=== PATIENT | male | born 1970 | race Caucasian/White ===

== ENCOUNTER 2018-07-24 07:57 | Day surgery (SDC) | payer BC ==
[~2018-07-24] VITALS: Ht 172.7 cm; Wt 66.7 kg
[2018-07-24] VITALS (7 sets, daily range): BP systolic 111–133; BP diastolic 50–74; PULSE 69–90; TEMP 98.3–98.5
[~2018-07-24 07:57] MED LIST: ZOLOFT 100MG100 MG PO
== END 2018-07-24 16:10 | disposition home or self-care (01) ==
LOC: SDCO 07:57
DX: K40.90 Unilateral inguinal hernia, without obstruction or gangrene, not specified as recurrent (principal); D17.6 Benign lipomatous neoplasm of spermatic cord; F32.9 Major depressive disorder, single episode, unspecified
CPT/HCPCS: C1781; J0690; J1100; J1170; J1885; J2405; J2704; J3010; J7120

== ENCOUNTER 2020-08-27 22:40 | Emergency (ER) | payer BC ==
[~2020-08-27] VITALS: Ht 172.7 cm; Wt 65.9 kg
[2020-08-27 22:48] VITALS: BP 132/71; PULSE 98; TEMP 98.7
[2020-08-27] MEDS ORDERED: PERCOCET 325 MG1 TA2 PO (23:21)
== END 2020-08-27 23:50 | disposition home or self-care (01) ==
LOC: COL.ER 22:40
DX: S52.511A Displaced fracture of right radial styloid process, initial encounter for closed fracture (principal); S52.611A Displaced fracture of right ulna styloid process, initial encounter for closed fracture; W18.09XA Striking against other object with subsequent fall, initial encounter

== ENCOUNTER 2020-09-07 11:05 | Day surgery (SDC) | payer BC ==
[~2020-09-07] VITALS: Ht 172.7 cm; Wt 67.7 kg
[~2020-09-07 11:05] MED LIST changes: +PERCOCET 325 MG1 TA2 PO
[2020-09-07] MEDS ORDERED: NORCO 325 MG-51 TAB PO (11:20)
[2020-09-07] MEDS ORDERED: ROXICODONE 55 MG/TAB PO (11:21)
[2020-09-07 11:57] VITALS: BP 116/77; PULSE 82; TEMP 98.4
[2020-09-07 16:25] VITALS: BP 128/47; PULSE 86; TEMP 97.8
--- NOTE | 2020-09-07 16:30 | NUR ---
PATIENT TRANSPORTED PER CART FROM PACU TO BAY 8 ACCOMPANIED BY PLANT SENIOR MANAGER. PATIENT ALERT AND TALKING WITH STAFF. MONITORS APPLIED. VSS ON ROOM AIR. PATIENT STATES HE IS UNABLE TO FEEL RIGHT ARM DUE TO BLOCK. VERBAL REPORT RECEIVED. FINGER TO RIGHT HAND PINK, WARM WITH GOOD CAPILLARY REFILL.
--- NOTE | 2020-09-07 16:36 | NUR ---
PATIENT DENIES NAUSEA AND DISCOMFORT. PATIENT GIVEN MUFFIN AND JUICE. PATIENT ON CELL PHONE, TXTING.
[2020-09-07 16:45] VITALS: BP 114/47; PULSE 87
--- NOTE | 2020-09-07 16:47 | NUR ---
PATIENT DOING WELL. FINGERS TO RIGHT HAND PINK, WARM WITH GOOD CAPILLARY REFILL. RIGHT ARM IS IN A SLING. PATIENT EATS MUFFING AND JUICE WITHOUT PROBLEMS. VSS ON ROOM AIR.
[2020-09-07 17:00] VITALS: BP 113/77; PULSE 90
--- NOTE | 2020-09-07 17:00 | NUR ---
VSS ON ROOM AIR. PATIENT TALKING ON CELL PHONE. PATIENT TOLERATES FOOD AND DRINK WITHOUT PROBLEMS. PATIENT STATES ARM CONTINUES NOT FEELING DUE TO BLOCK. FINGER PINK AND WARM. IV SITE DC'D WITH CATHETER TIP INTACT. PRESSURE AND BANDAGE APPLIED.
[2020-09-07 17:14] VITALS: BP 119/70; PULSE 95
--- NOTE | 2020-09-07 17:15 | NUR ---
VSS ON ROOM AIR. DISCHARGE INSTRUCTIONS GIVEN VERBAL AND WRITTEN. DISCHARGE PACKET GIVEN. QUESTIONS ANSWERED AND PATIENT VOICED UNDERSTANDING. PATIENT ASSISTED WITH CHANGING INTO STREET CLOTHES. 1720 PATIENT DISCHARGED PER WHEEL CHAIR ACCOMPANIED BY RN TO PRIVATE VECHILE DRIVEN BY FAMILY MEMBER.
== END 2020-09-07 17:20 | disposition home or self-care (01) ==
LOC: SDCO 11:05
DX: S52.571A Other intraarticular fracture of lower end of right radius, initial encounter for closed fracture (principal); S52.614A Nondisplaced fracture of right ulna styloid process, initial encounter for closed fracture; W19.XXXA Unspecified fall, initial encounter; Y93.9 Activity, unspecified
CPT/HCPCS: C1713; J0690; J2250; J2704; J2795; J3010; J7120